=== PATIENT | female | born 1995 | race African-American/Black ===

== ENCOUNTER 2017-05-20 23:45 | Observation (INO) | payer MEDICAID ==
[~2017-05-20 23:45] MED LIST: NORPTMEDS CO
== END 2017-05-21 00:50 | disposition home or self-care (01) | DRG 566 ==
LOC: LDRP 23:45
PROVIDERS: ADMIT Specialist; ATTEND Specialist
DX: O26.893 Other specified pregnancy related conditions, third trimester (principal); R10.9 Unspecified abdominal pain; Z3A.30 30 weeks gestation of pregnancy
CPT/HCPCS: 59025; G0378

== ENCOUNTER → 2019-02-13 | Outpatient (CLI) | payer OTHER | END | disposition home or self-care (01) | LOC: LAB 13:35 | PROVIDERS: ATTEND Preventive Medicine Preventive Medicine/Occupational Environmental Medicine | DX: Z02.1 Encounter for pre-employment examination (principal) | CPT/HCPCS: 36415; 86706; 86735; 86762; 86765; 86787 ==